=== PATIENT | male | born 1955 | race Caucasian/White ===

== ENCOUNTER → 2016-09-11 | Outpatient (RCR) ==
--- NOTE | 2016-08-28 09:44 | RS.OPPTEV2 ---
Date of Note: 08/28/16 Visit #: 1 Date of Evaluation: 08/28/15 Payer Source: Insurance Date of Onset/Injury/Change in Status: 08/12/16 Surgery Performed?: No Treatment Diagnosis: Cervicalgia History of Condition/Mechanism of Injury:: Patient has had neck pain for ~ 15 years. He hurt it originally at work and has been to PT before and it did help some but he says he began having pain again and didn't want to have surgery so he just kept going. Now it is getting to the point he is very tired of dealing with constant neck and shoulder pain. Left side is worse than the right. He states he can only sleep 3 hrs at a time at best due to the neck pain. He also reports upper arm pain intermittently that radiates to the elbow but not below bilaterally. Frequent HAs also occur which he relates to his neck as well. Medical History Medical History: Hypertension, Arthritis, Other Medical History Comments:: Colitis Surgical History: Other Surgical History Comments:: Right knee arthroscopy and [facility] Pain Assessment - Pain Description Pain Location: neck and shoulders Pain Description: Tightness, Radiating, Sharp Pain Description: Pain is only with movement Current Pain Intensity: 0/10 at rest Worst Pain Intensity: 8/10 Functional Outcome Measure Neck Disability Index: 20 - G Codes & Severity Modifier G Codes & Modifier: NA Source of G Code score: NA General Muscle Strength: Pain with min resistance to UE testing so this was discontinued. - ROM Cervical Flexion: 75 (% with increased left neck pain) Cervical Right Rotation: 25 (%) Cervical Spine Range of Motion Limitations: Soft Tissue Tightness, Pain - Strength Cervical Extension: 4 Good Cervical Flexion: 4- Good- - Special Tests Foraminal Distraction: Relief of pain with distraction. Foraminal Compression: Positive Left Furnace Combustion Analyst Strength Left Hand Furnace Combustion Analyst Strength: 65# Right Hand Furnace Combustion Analyst Strength: 45# Palpation Palpation Findings: None/Normal (No pain to palpation at time of eval.) Sensation - Sensation Sensation Description: Tingling (He is unsure if this is related to his neck.) Interventions - Exercise/Activities/Manual Therapy Exercises/Activities: CROM performed within pain free ROM. He was instructed to perform 5 reps each in all directions. Total minutes of Exercise: 5 minutes Manual Therapy: Manual traction X 8 min, A-O release, lateral glides bilaterally , left pec stretch minimally with tender point release performed. Total minutes of Manual Therapy: 15 minutes HOME EXERCISE PROGRAM: CROM as stated above. - Charges Total Direct Minutes: 20 minutes Total Treatment Time: 60 minutes Procedures billed for this date of service:: PT Eval & Manual therapy Assessment Assessment: Pain is present with all movement, decreased CROM and weakness of neck and BUEs. This is affecting his ability to sleep and perform everyday activities. Patient Education: Education of diagnosis, Body/Joint mechanics, Home Exercise Program, Activity Modification, Education of Plan of Care Rehab Potential: Good Short Term Goals Goal #1: Independent in basic HEP. Goal to be met by: 09/21/16 Goal #2: Patient has 25% decrease in B[place] occurance. Goal to be met by: 09/21/16 Goal #3: CROM WFLs. Goal to be met by: 09/21/16 Goal #4: Sleeps up to 4 hrs w/o pain awakening him. Goal to be met by: 09/21/16 Jail Goals Goal #1: Cervical strength 4+-5/5 to increase stability. Goal to be met by: 10/12/16 Goal #2: Eliminate BUE radicular symptoms. Goal to be met by: 10/12/16 Goal #3: Pateint is able to sleep thru the night w/o pain. Goal to be met by: 10/12/16 Goal #4: Independent with DC HEP. Goal to be met by: 10/12/16 Plan - Treatment to be Provided Procedures: Therapeutic Exercises, Therapeutic Activity, Neuromuscular Rehab, Manual Therapy, Massage, Patient Education Modalities: Electrical Stimulation, Ultrasound/Phonophoresis, Class IV Laser, Cryotherapy, Hot Packs, Mechanical Traction - Treatment Plan Frequency: 3 X week Duration: 6 weeks ORDER # VISITS AND/OR THROUGH DATE: 10/12/2016 - Treatment Code (1) Cervicalgia Comments: M54.2 (2) Muscle weakness (generalized) Comments: M62.81
--- NOTE | 2016-08-29 11:06 | RS.OPPTDN ---
Subjective Date of Note: 08/29/16 Visit #: 2 Date of Evaluation: 08/28/15 Payer Source: Insurance Treatment Diagnosis: Cervicalgia Current Subjective/complaints:: Repoirts the L neck and shoulder pain is greater than the R today.He had relief after yesterday's session,but as the day progressed the pain elevated. Pain Assessment - Pain Description Pain Location: neck and shoulders Pain Description: Tightness, Radiating, Sharp Current Pain Intensity: 6-7/10 with cervical rotation Other Comments regarding Pain:: no pain at rest - Treatment Modality: Electrical Stim Unattended Parameters/Method Applied: 20 mins. ,2 electrodes to upper traps. , @ 310 pv. Patient Position: Sitting - Heat/Cryotherapy Treatment: Hot Pack (concurrent with e-stim) - Traction Treatment Method: Mechanical (Reports relief and "feeling looser" after traction.), Intermittent, Cervical Patient Position: Supine Amount of Force Applied: 15# Hold Time: 30 secs. Rest Time: 5 secs. Duration of treatment: 20 mins. Interventions - Exercise/Activities/Manual Therapy Exercises/Activities: Reviewed HEP while on traction. Total minutes of Exercise: 0 Manual Therapy: NA Total minutes of Manual Therapy: 0 HOME EXERCISE PROGRAM: CROM as tolerated in PAIN FREE ROM for rotation,lateral flexion,chin tucks. - Charges Total Direct Minutes: 0 Total Treatment Time: 40 Procedures billed for this date of service:: hp,e-stim,traction Assessment: Patient is attentive to HEP recommendations.He reports the neck pain is sharp at times with rotation and radiates up the back of his head.He does report relief after treatment today. Patient Education: Education of diagnosis, Body/Joint mechanics, Home Exercise Program, Home Safety, Activity Modification, Education of Plan of Care Patient demonstrates compliance with HEP?: Yes Short Term Goals Goal #1: Independent in basic HEP. Goal to be met by: 09/21/16 Progress towards Goal:: Progressing Goal #2: Patient has 25% decrease in B[place] occurance. Goal to be met by: 09/21/16 Goal #3: CROM WFLs. Goal to be met by: 09/21/16 Goal #4: Sleeps up to 4 hrs w/o pain awakening him. Goal to be met by: 09/21/16 Pediatric Psychiatrist Goals Goal #1: Cervical strength 4+-5/5 to increase stability. Goal to be met by: 10/12/16 Goal #2: Eliminate BUE radicular symptoms. Goal to be met by: 10/12/16 Goal #3: Pateint is able to sleep thru the night w/o pain. Goal to be met by: 10/12/16 Goal #4: Independent with DC HEP. Goal to be met by: 10/12/16 Plan PLAN OF CARE EXPIRES ON:: 10/12/16 ORDER # VISITS AND/OR THROUGH DATE: 10/12/2016 PLAN: Continue Plan of Care
--- NOTE | 2016-08-31 11:15 | RS.OPPTDN ---
Subjective Date of Note: 08/31/16 Visit #: 3 Date of Evaluation: 08/28/15 Payer Source: Insurance Treatment Diagnosis: Cervicalgia Current Subjective/complaints:: Patient feels the therapy is helping,feels looser ,referring to his neck.He does report side-bending the neck is very painful. Pain Assessment - Pain Description Pain Location: neck and shoulders Pain Description: Tightness, Radiating, Sharp Pain Description: Pain is only with movement Current Pain Intensity: 5-6 - Treatment Modality: Electrical Stim Unattended Parameters/Method Applied: 20 mins. high volt to cervical/UT's,channel 1 @ 185 pv,channel 2 @ 150 pv. Patient Position: Sitting - Heat/Cryotherapy Treatment: Hot Pack (concurrent with e-stim) - Traction Treatment Method: Mechanical, Intermittent, Cervical Patient Position: Supine Amount of Force Applied: 16# for 10 mins,18# for 10 mins. Hold Time: 30 secs. Rest Time: 5 secs. Duration of treatment: 20 mins. Traction Treatment Comment: Tolerates well. Interventions - Exercise/Activities/Manual Therapy Exercises/Activities: Reviewed HEp whle on traction.He reports he is doing chin tucks,and limited cervical ROM. Total minutes of Exercise: 0 Manual Therapy: NA Total minutes of Manual Therapy: 0 HOME EXERCISE PROGRAM: CROM as tolerated in PAIN FREE ROM for rotation,lateral flexion,chin tucks. - Charges Total Direct Minutes: 0 Total Treatment Time: 40 Procedures billed for this date of service:: hp,e-stim,traction Assessment: Patient reports relief after treatment today.He is cautious with cervical motion ,has good awareness to not push through sharp pain.He is motivated to improve .His sleep is still interrupted due to pain,sleeps about 3 hours at a time currently. Patient Education: Body/Joint mechanics, Home Exercise Program, Education of Plan of Care Patient demonstrates compliance with HEP?: Yes Short Term Goals Goal #1: Independent in basic HEP. Goal to be met by: 09/21/16 Progress towards Goal:: Progressing Goal #2: Patient has 25% decrease in [place] occurance. Goal to be met by: 09/21/16 Goal #3: CROM WFLs. Goal to be met by: 09/21/16 Goal #4: Sleeps up to 4 hrs w/o pain awakening him. Goal to be met by: 09/21/16 (3 hours currently) Progress towards Goal:: Progressing Power Plant Operator Goals Goal #1: Cervical strength 4+-5/5 to increase stability. Goal to be met by: 10/12/16 Goal #2: Eliminate BUE radicular symptoms. Goal to be met by: 10/12/16 Goal #3: Pateint is able to sleep thru the night w/o pain. Goal to be met by: 10/12/16 Goal #4: Independent with DC HEP. Goal to be met by: 10/12/16 Plan PLAN OF CARE EXPIRES ON:: 10/12/16 ORDER # VISITS AND/OR THROUGH DATE: 10/12/2016 PLAN: Continue Plan of Care
--- NOTE | 2016-09-04 11:09 | RS.OPPTDN ---
Subjective Date of Note: 09/04/16 Visit #: 4 Date of Evaluation: 08/28/15 Payer Source: Insurance Treatment Diagnosis: Cervicalgia Current Subjective/complaints:: Patient reports improvement ,less pain today, improved neck motion. Pain Assessment - Pain Description Pain Location: neck and shoulders Pain Description: Aching Current Pain Intensity: minimal aching - Treatment Modality: Electrical Stim Unattended Parameters/Method Applied: 20 mins. high volt,to cervical/UT's,channel 1 @130 pv ,channel 2 @ 115 pv. Patient Position: Sitting - Heat/Cryotherapy Treatment: Hot Pack (concurent with e-stim) - Traction Treatment Method: Mechanical, Intermittent, Cervical Patient Position: Supine Amount of Force Applied: 18-19# Hold Time: 30 secs. Rest Time: 5 secs. Duration of treatment: 20 mins. Traction Treatment Comment: Tolerates well. Interventions - Exercise/Activities/Manual Therapy Exercises/Activities: Reviewed HEP whle on traction.He reports he is doing chin tucks,and demos his cervical motion today. Total minutes of Exercise: 0 Manual Therapy: NA Total minutes of Manual Therapy: 0 HOME EXERCISE PROGRAM: CROM as tolerated in PAIN FREE ROM for rotation,lateral flexion,chin tucks. - Charges Total Direct Minutes: 0 Total Treatment Time: 40 Procedures billed for this date of service:: hp,e-stim,traction Assessment: Patient progressing well,has much improved cervical motion with less intense pain present today.He reports the sudden,sharp pain with rotating his neck is absent today.he is attentive to recommendations of the therapy staff. Patient Education: Body/Joint mechanics, Home Exercise Program, Education of Plan of Care Patient demonstrates compliance with HEP?: Yes Short Term Goals Goal #1: Independent in basic HEP. Goal to be met by: 09/21/16 Progress towards Goal:: Partially Met Goal #2: Patient has 25% decrease in [place] occurance. Goal to be met by: 09/21/16 Progress towards Goal:: Progressing Goal #3: CROM WFLs. Goal to be met by: 09/21/16 Progress towards Goal:: Progressing Goal #4: Sleeps up to 4 hrs w/o pain awakening him. Goal to be met by: 09/21/16 Progress towards Goal:: Progressing Production Tester Goals Goal #1: Cervical strength 4+-5/5 to increase stability. Goal to be met by: 10/12/16 Goal #2: Eliminate BUE radicular symptoms. Goal to be met by: 10/12/16 Progress towards goal: Progressing Goal #3: Pateint is able to sleep thru the night w/o pain. Goal to be met by: 10/12/16 Goal #4: Independent with DC HEP. Goal to be met by: 10/12/16 Progress towards goal: Progressing Plan PLAN OF CARE EXPIRES ON:: 10/12/16 ORDER # VISITS AND/OR THROUGH DATE: 10/12/2016 PLAN: Continue Plan of Care
--- NOTE | 2016-09-05 11:18 | RS.OPPTDN ---
Subjective Date of Note: 09/05/16 Visit #: 5 Date of Evaluation: 08/28/15 Payer Source: Insurance Treatment Diagnosis: Cervicalgia Current Subjective/complaints:: Reports he is still progressing overall,had one episode last night of sharp pain with rotation of his neck,causing soreness,but the sharp pain was brief. Pain Assessment - Pain Description Pain Location: neck and shoulders Pain Description: Aching Pain Description: Pain is only with movement Current Pain Intensity: minimal aching - Treatment Modality: Electrical Stim Unattended Parameters/Method Applied: 20 mins. high volt,channel 1 @ 150 pv,channel 2 @ 135 pv. to cervical/UT's. Patient Position: Sitting - Heat/Cryotherapy Treatment: Hot Pack (concurrent with e-stim) - Traction Treatment Method: Mechanical, Intermittent, Cervical Patient Position: Supine Amount of Force Applied: 18-19# Hold Time: 30 secs. Rest Time: 5 secs. Duration of treatment: 20 mins. Traction Treatment Comment: Tolerates well. Interventions - Exercise/Activities/Manual Therapy Exercises/Activities: Reviewed HEP whle on traction.He reports he is doing chin tucks,and demos his cervical motion today. Total minutes of Exercise: 0 Manual Therapy: NA Total minutes of Manual Therapy: 0 HOME EXERCISE PROGRAM: CROM as tolerated in PAIN FREE ROM for rotation,lateral flexion,chin tucks. - Charges Total Direct Minutes: 0 Total Treatment Time: 40 Procedures billed for this date of service:: hp,e-stim,traction Assessment: Patient reports sleeping better,he has les guarding with cervical motion today.He has improved understanding of joint protection and the difference between stretch discomfort ,as opposed to debilitating pain. Patient Education: Education of diagnosis, Body/Joint mechanics, Home Exercise Program, Home Safety, Activity Modification, Education of Plan of Care Patient demonstrates compliance with HEP?: Yes Short Term Goals Goal #1: Independent in basic HEP. Goal to be met by: 09/21/16 Progress towards Goal:: Partially Met Goal #2: Patient has 25% decrease in [place] occurance. Goal to be met by: 09/21/16 Progress towards Goal:: Progressing Goal #3: CROM WFLs. Goal to be met by: 09/21/16 Progress towards Goal:: Progressing Goal #4: Sleeps up to 4 hrs w/o pain awakening him. Goal to be met by: 09/21/16 Progress towards Goal:: Progressing Half-Way Goals Goal #1: Cervical strength 4+-5/5 to increase stability. Goal to be met by: 10/12/16 Goal #2: Eliminate BUE radicular symptoms. Goal to be met by: 10/12/16 Progress towards goal: Progressing Goal #3: Pateint is able to sleep thru the night w/o pain. Goal to be met by: 10/12/16 Goal #4: Independent with DC HEP. Goal to be met by: 10/12/16 Progress towards goal: Progressing Plan PLAN OF CARE EXPIRES ON:: 10/12/16 ORDER # VISITS AND/OR THROUGH DATE: 10/12/2016 PLAN: Continue Plan of Care
--- NOTE | 2016-09-07 12:11 | RS.OPPTDN ---
Subjective Date of Note: 09/07/16 Visit #: 6 Date of Evaluation: 08/28/15 Payer Source: Insurance Treatment Diagnosis: Cervicalgia Current Subjective/complaints:: Patient reports he continues to sleep better, less neck pain. Pain Assessment - Pain Description Pain Location: neck and shoulders Pain Description: Dull, Aching Current Pain Intensity: minimal aching - Treatment Modality: Electrical Stim Unattended Parameters/Method Applied: 20 mins. high volt,channel 1 @ 185 pv,channel 2 @ 150 pv to cervical/UT region. Patient Position: Sitting - Heat/Cryotherapy Treatment: Hot Pack (concurrent with e-stim) - Traction Treatment Method: Mechanical, Intermittent, Cervical Patient Position: Supine Amount of Force Applied: 19# Hold Time: 30 secs. Rest Time: 5 secs. Duration of treatment: 20 mins. Interventions - Exercise/Activities/Manual Therapy Exercises/Activities: 10 mins. instruction of postural pullbacks at 3 different heights using the red theraband. Total minutes of Exercise: 10 Manual Therapy: NA Total minutes of Manual Therapy: 0 HOME EXERCISE PROGRAM: CROM as tolerated in PAIN FREE ROM for rotation,lateral flexion,chin tucks.Red theraband exercises of postural pullbacks at different heights. - Charges Total Direct Minutes: 10 Total Treatment Time: 50 Procedures billed for this date of service:: hp,e-stim,traction,ex 1 Assessment: Patient reports the theraband exercises do not cause pain,and actually feels better as he is doing them.His cervical motion is improving ,and resting better at night.He tolerates traction well.He is attentive and compliant to all recommendations. Patient Education: Education of diagnosis, Body/Joint mechanics, Home Exercise Program, Home Safety, Activity Modification, Education of Plan of Care Patient demonstrates compliance with HEP?: Yes Short Term Goals Goal #1: Independent in basic HEP. Goal to be met by: 09/21/16 Progress towards Goal:: Partially Met Goal #2: Patient has 25% decrease in [place] occurance. Goal to be met by: 09/21/16 Progress towards Goal:: Progressing Goal #3: CROM WFLs. Goal to be met by: 09/21/16 Progress towards Goal:: Progressing Goal #4: Sleeps up to 4 hrs w/o pain awakening him. Goal to be met by: 09/21/16 Progress towards Goal:: Progressing Skilled Nursing Goals Goal #1: Cervical strength 4+-5/5 to increase stability. Goal to be met by: 10/12/16 Goal #2: Eliminate BUE radicular symptoms. Goal to be met by: 10/12/16 Progress towards goal: Progressing Goal #3: Pateint is able to sleep thru the night w/o pain. Goal to be met by: 10/12/16 Goal #4: Independent with DC HEP. Goal to be met by: 10/12/16 Progress towards goal: Progressing Plan PLAN OF CARE EXPIRES ON:: 10/12/16 ORDER # VISITS AND/OR THROUGH DATE: 10/12/2016 PLAN: Continue Plan of Care
--- NOTE | 2016-09-11 11:34 | RS.OPPTDN ---
Subjective Date of Note: 09/11/16 Visit #: 7 Date of Evaluation: 08/28/15 Payer Source: Insurance Treatment Diagnosis: Cervicalgia Current Subjective/complaints:: Reports the sharp pain is absent now,still has soreness and tightness ,but is better overall.He also reports he does not feel "crunching" sensation in his neck. Pain Assessment - Pain Description Pain Location: neck and shoulders Pain Description: Tightness, Dull, Aching Pain Description: soreness Current Pain Intensity: 3-4 - Heat/Cryotherapy Treatment: Hot Pack (20 mins. prior to traction,ex ) - Traction Treatment Method: Mechanical, Intermittent, Cervical Patient Position: Supine Amount of Force Applied: 19-20# Hold Time: 30 secs. Rest Time: 5 secs. Duration of treatment: 20 mins. Traction Treatment Comment: tolerates well. Interventions - Exercise/Activities/Manual Therapy Exercises/Activities: 15 mins. of postural pullbacks at 3 different heights, progressed to using the blue theraband. Total minutes of Exercise: 15 Manual Therapy: NA Total minutes of Manual Therapy: 0 HOME EXERCISE PROGRAM: CROM as tolerated in PAIN FREE ROM for rotation,lateral flexion,chin tucks.Red theraband exercises of postural pullbacks at different heights. - Charges Total Direct Minutes: 15 Total Treatment Time: 55 Procedures billed for this date of service:: hp,traction,ex Assessment: Patient tolerates the increased resistance for exercises with good form ,no increase in pain.He continues to be highly motivated to improve,is compliant to HEP.His cervical ROM is less painful. Patient Education: Education of diagnosis, Body/Joint mechanics, Home Exercise Program, Home Safety, Activity Modification, Education of Plan of Care Patient demonstrates compliance with HEP?: Yes Short Term Goals Goal #1: Independent in basic HEP. Goal to be met by: 09/21/16 Progress towards Goal:: Partially Met Goal #2: Patient has 25% decrease in [place] occurance. Goal to be met by: 09/21/16 Progress towards Goal:: Progressing Goal #3: CROM WFLs. Goal to be met by: 09/21/16 Progress towards Goal:: Progressing Goal #4: Sleeps up to 4 hrs w/o pain awakening him. Goal to be met by: 09/21/16 Progress towards Goal:: Progressing Mcc Goals Goal #1: Cervical strength 4+-5/5 to increase stability. Goal to be met by: 10/12/16 Goal #2: Eliminate BUE radicular symptoms. Goal to be met by: 10/12/16 Progress towards goal: Progressing Goal #3: Pateint is able to sleep thru the night w/o pain. Goal to be met by: 10/12/16 Progress towards goal: Progressing Goal #4: Independent with DC HEP. Goal to be met by: 10/12/16 Progress towards goal: Progressing Plan PLAN OF CARE EXPIRES ON:: 10/12/16 ORDER # VISITS AND/OR THROUGH DATE: 10/12/2016 PLAN: Continue Plan of Care
== END ==
PROVIDERS: ATTEND Neurological Surgery
DX: M54.2 Cervicalgia (principal)

== ENCOUNTER 2016-09-27 11:00 | Outpatient (RCR) ==
--- NOTE | 2016-09-13 12:05 | RS.OPPTDN ---
Subjective Date of Note: 09/13/16 Visit #: 8 Date of Evaluation: 08/28/15 Payer Source: Insurance Treatment Diagnosis: Cervicalgia Current Subjective/complaints:: Reports doing his blue theraband exercises yesterday without difficulty. Pain Assessment - Pain Description Pain Location: neck and shoulders Pain Description: Dull, Aching Pain Description: soreness Current Pain Intensity: 3-4 - Heat/Cryotherapy Treatment: Hot Pack (20 mins prior to traction) - Traction Treatment Method: Mechanical, Intermittent, Cervical Patient Position: Supine Amount of Force Applied: 20-21# Hold Time: 30 secs. Rest Time: 5 secs. Duration of treatment: 20 mins. Traction Treatment Comment: Tolerates well. Interventions - Exercise/Activities/Manual Therapy Exercises/Activities: NA Manual Therapy: NA Total minutes of Manual Therapy: 0 HOME EXERCISE PROGRAM: CROM as tolerated in PAIN FREE ROM for rotation,lateral flexion,chin tucks.Red theraband exercises of postural pullbacks at different heights. - Charges Total Direct Minutes: 0 Total Treatment Time: 40 Procedures billed for this date of service:: hp,traction Assessment: Patient continues to report less cervical pain with active motion, along with less crepitus.He has improved sleep occasionally.He is compliant to HEP. Patient Education: Body/Joint mechanics, Home Exercise Program, Education of Plan of Care Patient demonstrates compliance with HEP?: Yes Short Term Goals Goal #1: Independent in basic HEP. Goal to be met by: 09/21/16 Progress towards Goal:: Partially Met Goal #2: Patient has 25% decrease in [place] occurance. Goal to be met by: 09/21/16 Progress towards Goal:: Progressing Goal #3: CROM WFLs. Goal to be met by: 09/21/16 Progress towards Goal:: Progressing Goal #4: Sleeps up to 4 hrs w/o pain awakening him. Goal to be met by: 09/21/16 Progress towards Goal:: Progressing Snf Goals Goal #1: Cervical strength 4+-5/5 to increase stability. Goal to be met by: 10/12/16 Progress towards goal: Progressing Goal #2: Eliminate BUE radicular symptoms. Goal to be met by: 10/12/16 Progress towards goal: Partially Met Goal #3: Pateint is able to sleep thru the night w/o pain. Goal to be met by: 10/12/16 Progress towards goal: Progressing Goal #4: Independent with DC HEP. Goal to be met by: 10/12/16 Progress towards goal: Progressing Plan PLAN OF CARE EXPIRES ON:: 10/12/16 ORDER # VISITS AND/OR THROUGH DATE: 10/12/2016 PLAN: Progress Exercises
--- NOTE | 2016-09-18 12:06 | RS.OPPTDN ---
Subjective Date of Note: 09/18/16 Visit #: 9 Date of Evaluation: 08/28/15 Payer Source: Insurance Treatment Diagnosis: Cervicalgia Current Subjective/complaints:: Reports muscle soreness from a busy weekend,but overall is better.He reports he is doing his theraband exercises. Pain Assessment - Pain Description Pain Location: neck and shoulders Pain Description: Dull, Aching Pain Description: soreness Current Pain Intensity: 6-7 Other Comments regarding Pain:: occasional radiating up into his head with neck motion - Heat/Cryotherapy Treatment: Hot Pack (20 mins. prior to traction) - Traction Treatment Method: Mechanical, Intermittent, Cervical Patient Position: Supine Amount of Force Applied: 21-22# Hold Time: 30 secs. Rest Time: 5 secs. Duration of treatment: 20 mins. Traction Treatment Comment: Tolerates well. Interventions - Exercise/Activities/Manual Therapy Exercises/Activities: NA Total minutes of Exercise: 0 Manual Therapy: NA Total minutes of Manual Therapy: 0 HOME EXERCISE PROGRAM: CROM as tolerated in PAIN FREE ROM for rotation,lateral flexion,chin tucks.Red theraband exercises of postural pullbacks at different heights. - Charges Total Direct Minutes: 0 Total Treatment Time: 40 Procedures billed for this date of service:: hp,traction Assessment: Patient reports overall progress,is more sore today due to busy weekend.He does continue to not have the crepitus present with cervical motion.He is compliant to doing his HEP. Short Term Goals Goal #1: Independent in basic HEP. Goal to be met by: 09/21/16 Progress towards Goal:: Met Goal #2: Patient has 25% decrease in [place] occurance. Goal to be met by: 09/21/16 Progress towards Goal:: Progressing Goal #3: CROM WFLs. Goal to be met by: 09/21/16 Progress towards Goal:: Partially Met Goal #4: Sleeps up to 4 hrs w/o pain awakening him. Goal to be met by: 09/21/16 Progress towards Goal:: Progressing Fpc Goals Goal #1: Cervical strength 4+-5/5 to increase stability. Goal to be met by: 10/12/16 Progress towards goal: Progressing Goal #2: Eliminate BUE radicular symptoms. Goal to be met by: 10/12/16 Progress towards goal: Partially Met Goal #3: Pateint is able to sleep thru the night w/o pain. Goal to be met by: 10/12/16 Progress towards goal: Progressing Goal #4: Independent with DC HEP. Goal to be met by: 10/12/16 Progress towards goal: Progressing Plan PLAN OF CARE EXPIRES ON:: 10/12/16 ORDER # VISITS AND/OR THROUGH DATE: 10/12/2016 PLAN: Continue Plan of Care
--- NOTE | 2016-09-20 12:36 | RS.OPPTDN ---
Subjective Date of Note: 09/20/16 Visit #: 10 Date of Evaluation: 08/28/15 Payer Source: Insurance Treatment Diagnosis: Cervicalgia Current Subjective/complaints:: Patient reports the pain is now described as "discomfort" insted of sharp pain.He continues to do his theraband exercises independently without any increased symptoms. Pain Assessment - Pain Description Pain Location: neck and shoulders Pain Description: Dull, Aching Pain Description: soreness Current Pain Intensity: 4-5 - Heat/Cryotherapy Treatment: Hot Pack (20 mins. prior to traction) - Traction Treatment Method: Mechanical, Intermittent, Cervical Patient Position: Supine Amount of Force Applied: 21-22# Hold Time: 30 secs. Rest Time: 5 secs. Duration of treatment: 20 mins. Traction Treatment Comment: Tolerates well. Interventions - Exercise/Activities/Manual Therapy Exercises/Activities: Independent with HEP using theraband for postural,and doing cervical ROM in PAIN FREE ROM. Total minutes of Exercise: 0 Manual Therapy: NA Total minutes of Manual Therapy: 0 HOME EXERCISE PROGRAM: CROM as tolerated in PAIN FREE ROM for rotation,lateral flexion,chin tucks.Red theraband exercises of postural pullbacks at different heights. - Charges Total Direct Minutes: 0 Total Treatment Time: 40 Procedures billed for this date of service:: hp,traction Assessment: Progressing toward rehab goals,still has difficulty,but feels this is not always due to his neck.He continues to be able move his neck without crepitus present .We discussed initiating his D/C plan as he progresses toward goals. Patient Education: Education of diagnosis, Body/Joint mechanics, Home Exercise Program, Home Safety, Activity Modification, Education of Plan of Care Patient demonstrates compliance with HEP?: Yes Short Term Goals Goal #1: Independent in basic HEP. Goal to be met by: 09/21/16 Progress towards Goal:: Met Goal #2: Patient has 25% decrease in [place] occurance. Goal to be met by: 09/21/16 Progress towards Goal:: Partially Met Goal #3: CROM WFLs. Goal to be met by: 09/21/16 Progress towards Goal:: Met Goal #4: Sleeps up to 4 hrs w/o pain awakening him. Goal to be met by: 09/21/16 Progress towards Goal:: Progressing Nursing Home Goals Goal #1: Cervical strength 4+-5/5 to increase stability. Goal to be met by: 10/12/16 Progress towards goal: Progressing Goal #2: Eliminate BUE radicular symptoms. Goal to be met by: 10/12/16 Progress towards goal: Partially Met Goal #3: Pateint is able to sleep thru the night w/o pain. Goal to be met by: 10/12/16 Progress towards goal: No Change Goal #4: Independent with DC HEP. Goal to be met by: 10/12/16 Progress towards goal: Partially Met Plan PLAN OF CARE EXPIRES ON:: 10/12/16 ORDER # VISITS AND/OR THROUGH DATE: 10/12/2016 PLAN: Continue Plan of Care
--- NOTE | 2016-09-25 11:58 | RS.OPPTDN ---
Subjective Date of Note: 09/25/16 Visit #: 11 Date of Evaluation: 08/28/15 Payer Source: Insurance Treatment Diagnosis: Cervicalgia Current Subjective/complaints:: Reports he continues to do theraband exercises, and the neck feels about the same today regarding soreness and pain,but is pleased that the "crunch" feeling is not present. Pain Assessment - Pain Description Pain Location: neck and shoulders Pain Description: Dull, Aching Pain Description: soreness Current Pain Intensity: 4-5 - Heat/Cryotherapy Treatment: Hot Pack (20 mins. prior to exercises and traction) Interventions - Exercise/Activities/Manual Therapy Exercises/Activities: 3/10 each of black theraband for postural pullbacks at different heights,HEP review Total minutes of Exercise: 10 Manual Therapy: NA Total minutes of Manual Therapy: 0 HOME EXERCISE PROGRAM: CROM as tolerated in PAIN FREE ROM for rotation,lateral flexion,chin tucks.Red theraband exercises of postural pullbacks at different heights. - Charges Total Direct Minutes: 10 Total Treatment Time: 50 Procedures billed for this date of service:: hp,ex ,traction Assessment: Patient tolerates increased resistance exercises,progressed to black theraband today without discomfort.He is progressing well,approaching rehab potential,and we discussed the D/C plan this week. Patient Education: Body/Joint mechanics, Home Exercise Program, Education of Plan of Care Patient demonstrates compliance with HEP?: Yes Short Term Goals Goal #1: Independent in basic HEP. Goal to be met by: 09/21/16 Progress towards Goal:: Met Goal #2: Patient has 25% decrease in [place] occurance. Goal to be met by: 09/21/16 Progress towards Goal:: Partially Met Goal #3: CROM WFLs. Goal to be met by: 09/21/16 Progress towards Goal:: Met Goal #4: Sleeps up to 4 hrs w/o pain awakening him. Goal to be met by: 09/21/16 (inconsistent regarding the hours he is able to sleep) Progress towards Goal:: Partially Met Commissions Manager Goals Goal #1: Cervical strength 4+-5/5 to increase stability. Goal to be met by: 10/12/16 Progress towards goal: Partially Met Goal #2: Eliminate BUE radicular symptoms. Goal to be met by: 10/12/16 Progress towards goal: Partially Met Goal #3: Pateint is able to sleep thru the night w/o pain. Goal to be met by: 10/12/16 Goal #4: Independent with DC HEP. Goal to be met by: 10/12/16 Progress towards goal: Partially Met Plan PLAN OF CARE EXPIRES ON:: 10/12/16 ORDER # VISITS AND/OR THROUGH DATE: 10/12/2016 PLAN: Continue Plan of Care
--- NOTE | 2016-09-27 12:07 | RS.OPPTDC ---
Date of Discharge: 09/27/16 Date of Evaluation: 08/28/15 Number of Visits: 12 Treatment Diagnosis: Cervicalgia Current Level of Function: Independent in community. Current Complaints/Gains: Patient pleased with the progress he made while attending therapy. Pain Assessment - Pain Description Pain Location: neck and shoulders Pain Description: Dull, Aching Pain Description: soreness Current Pain Intensity: 4 Functional Outcome Measure Neck Disability Index: 15 - G Codes & Severity Modifier G Codes & Modifier: NA Source of G Code score: NA Observation - Observation Posture: Forward Head - Heat/Cryotherapy Treatment: Hot Pack (20 mins. prior to traction) Interventions - Exercise/Activities/Manual Therapy Exercises/Activities: HEP review,is independent. Total minutes of Exercise: 0 Manual Therapy: NA Total minutes of Manual Therapy: 0 HOME EXERCISE PROGRAM: CROM as tolerated in PAIN FREE ROM for rotation,lateral flexion,chin tucks.Red theraband exercises of postural pullbacks at different heights. - Charges Total Direct Minutes: 0 Total Treatment Time: 40 Procedures billed for this date of service:: hp,traction Assessment Assessment: Patient progressed well,has good understanding of HEP,improved sleep the past few nights,tolerating ADL's with less difficulty.He reports minimal crepitus in the neck with AROM.He is aware of D/C plan today. Patient Education: Education of diagnosis, Body/Joint mechanics, Home Exercise Program, Home Safety, Activity Modification, Education of Plan of Care Rehab Potential: Good Short Term Goals Goal #1: Independent in basic HEP. Goal to be met by: 09/21/16 Progress towards Goal:: Met Goal #2: Patient has 25% decrease in [place] occurance. Goal to be met by: 09/21/16 Progress towards Goal:: Met Goal #3: CROM WFLs. Goal to be met by: 09/21/16 Progress towards Goal:: Met Goal #4: Sleeps up to 4 hrs w/o pain awakening him. Goal to be met by: 09/21/16 (inconsistent regarding the hours he is able to sleep) Progress towards Goal:: Partially Met Custodial Goals Goal #1: Cervical strength 4+-5/5 to increase stability. Goal to be met by: 10/12/16 Progress towards goal: Met Goal #2: Eliminate BUE radicular symptoms. Goal to be met by: 10/12/16 Progress towards goal: Partially Met Goal #3: Pateint is able to sleep thru the night w/o pain. Goal to be met by: 10/12/16 (5 hours last night ) Progress towards goal: Progressing Goal #4: Independent with DC HEP. Goal to be met by: 10/12/16 Progress towards goal: Partially Met Plan Reason for Discharge:: No Further Skilled Therapy Indicated
== END 2016-10-09 ==
PROVIDERS: ATTEND Neurological Surgery
DX: M54.2 Cervicalgia (principal)

== ENCOUNTER 2016-10-01 06:18 | Day surgery (SDC) ==
[2016-10-01] MEDS ORDERED: VERSED ONE (08:00)
[2016-10-01] MEDS ORDERED: DIPRIVAN 20 ML VIAL IVP ONE (08:00)
[2016-10-01 08:47] LABS: BASOPHILS # (AUTO) 0.1 K/uL (0-0.2); BASOPHILS % (AUTO) 0.8 % (0.0-3.0); EOSINOPHILS # (AUTO) 0.1 K/ul (0.0-0.7); EOSINOPHILS % (AUTO) 2.3 % (0.0-7.0); HEMATOCRIT 46.6 % (42.0-52.0); HEMOGLOBIN 16.6 g/dl (14.0-18.0); IMMATURE GRANULOCYTE % (AUTO) 0.3 % (0.0-5.0); LYMPHOCYTES # (AUTO) 0.7 K/uL (0.60-3.4); LYMPHOCYTES % (AUTO) 11.3 (10.0-50.0); MEAN CORPUSCULAR HEMOGLOBIN 32.6 pg (27.0-31.0); MEAN CORPUSCULAR HGB CONC 35.6 (31.8-35.4); MEAN CORPUSCULAR VOLUME 91.6 fl (80.0-94.0); MONOCYTES # (AUTO) 0.6 K/uL (0.4-2.0); MONOCYTES % (AUTO) 9.9 (0-10); NEUTROPHILS # (AUTO) 4.6 K/ul (2.0-6.9); NEUTROPHILS % (AUTO) 75.4; PLATELET COUNT 239 10^3/uL (140-440); RED BLOOD COUNT 5.09 10^6/ul (4.70-6.10); WHITE BLOOD COUNT 6.04 K/ul (4.2-10.2)
[2016-10-01 09:03] LABS: ALBUMIN 4.2 g/dL (3.4-5.0); ALBUMIN/GLOBULIN RATIO 1.27; ANION GAP 15.5; BILIRUBIN,TOTAL 1.04 mg/dL (0.00-1.20); BUN/CREATININE RATIO 11.76; CALCIUM 9.6 mg/dL (8.2-10.2); CREATININE 1.02 mg/dL (0.60-1.10); POTASSIUM 4.5 mmol/L (3.5-5.1); TOTAL PROTEIN 7.5 g/dL (6.4-8.2)
[2016-10-01 10:14] VITALS: BP 138/88; TEMP 98.7
--- NOTE | 2016-10-01 13:53 | OP ---
PROCEDURE: COLONOSCOPY TO THE CECUM WITH BIOPSY. ENDOSCOPIST: [place] GARDUNO M.D. INDICATION: HISTORY OF ULCERATIVE COLITIS. LAST COLONOSCOPY TWO YEARS PRIOR. INSTRUMENT: [employer]-[id number]. MEDICATION: PER ANESTHESIA. PROCEDURE: The patient was positioned for colonoscopy. The digital rectal exam was negative. The colonoscope was inserted through the anus and advanced to the cecum. The cecum was identified using the ileocecal valve and the appendiceal orifice as landmarks. The scope was slowly withdrawn through an adequately prepped colon. There is no evidence for colitis on this exam. Surveillance biopsies were obtained of the cecum, ascending colon, hepatic flexure, 90, 80, 70, 60, 50, 40, 30, 20, and rectum. Retroflex exam was otherwise unremarkable. Withdrawal time 16 minutes and 20 seconds. PLAN: 1. Review pathology. 2. Check labs today. 3. Repeat colonoscopy in 2 years. CC: DR. NEFTALI SWEENEY
== END 2016-10-01 09:15 | disposition home or self-care (01) ==
LOC: SURG 06:18
PROVIDERS: ATTEND Internal Medicine Gastroenterology
DX: Z87.19 Personal history of other diseases of the digestive system (principal); D12.0 Benign neoplasm of cecum; D12.2 Benign neoplasm of ascending colon; D12.3 Benign neoplasm of transverse colon; D12.4 Benign neoplasm of descending colon; D12.5 Benign neoplasm of sigmoid colon; D12.7 Benign neoplasm of rectosigmoid junction
CPT/HCPCS: 36415; 80053; 85025

== ENCOUNTER 2016-11-05 14:46 | Outpatient (CLI) ==
--- NOTE | 2016-11-05 15:56 | DI ---
EXAM: Radiographs, pelvis HISTORY: Pelvic pain. COMPARISON: None available. TECHNIQUE: Single frontal view. FINDINGS: Bone mineralization is normal. There is no fracture or dislocation. The joint spaces ar e maintained. No focal soft tissue abnormality is seen. IMPRESSION: No abnormality of the pelvis.
--- NOTE | 2016-11-06 08:41 | DI ---
EXAM: Radiographs, sacroiliac joint HISTORY: Sacroiliac joint pain. Low back pain. COMPARISON: None available. TECHNIQUE: 2-view. FINDINGS/IMPRESSION: The sacroiliac joints are symmetric without significant arthritis. Sacral arcuate lines are intact without fracture.
== END 2016-11-05 14:47 | disposition home or self-care (01) ==
LOC: RAD 14:46
PROVIDERS: ATTEND Family Medicine
DX: M54.5 Low back pain (principal)